=== PATIENT | male | born 1950 | race Caucasian/White ===

== ENCOUNTER 2024-03-21 05:09 | Outpatient (CLI) | payer MEDICARE, BC, SELFPAY | END 2024-03-21 05:10 | disposition home or self-care (01) | PROVIDERS: PCP Nurse Practitioner Family; Visit Provider Nurse Practitioner Family | DX: E78.5 Hyperlipidemia, unspecified (principal); I10 Essential (primary) hypertension; Z86.2 Personal history of diseases of the blood and blood-forming organs and certain disorders involving the immune mechanism; Z12.5 Encounter for screening for malignant neoplasm of prostate; Z13.21 Encounter for screening for nutritional disorder; Z13.0 Encounter for screening for diseases of the blood and blood-forming organs and certain disorders involving the immune mechanism | CPT/HCPCS: 80053; 80061; 82607; 82728; 83540; 83550; 85025; G0103 ==

== ENCOUNTER 2024-08-15 09:50 | Outpatient (CLI) | payer MEDICARE, BC, SELFPAY | END 2024-08-15 09:51 | disposition home or self-care (01) | LOC: KYNREF 09:51 | PROVIDERS: PCP Nurse Practitioner Family; Visit Provider Nurse Practitioner Family | DX: I10 Essential (primary) hypertension (principal) | CPT/HCPCS: 80048; 85025 ==